=== PATIENT | female | born 1950 | race Caucasian/White ===

== ENCOUNTER 2016-12-11 13:58 | Emergency (ER) | payer MEDICARE, OTHER ==
[2016-12-11] MEDS ORDERED: Sodium Chloride 0.9% 1,000 ML IV ONE (14:16)
[2016-12-11] MEDS ORDERED: Sodium Chloride 0.9% 10 ML Syringe FLUSH PRN (14:16)
--- NOTE | 2016-12-11 14:49 | EDM.PDOC ---
ED HPI GENERAL MEDICAL PROBLEM - General Chief Complaint: Syncope Stated Complaint: DIZZINESS Time Seen by Provider: 12/11/16 14:07 Source of Information: Reports: Patient History Limitations: Reports: No Limitations - History of Present Illness INITIAL COMMENTS - FREE TEXT/NARRATIVE: Patient describes dizziness and near syncope for several weeks. She has been getting treatment from her chiropractic doctor who did finally say that this was not neck related and she should be seen for this. She states over the last 1-2 weeks it has become worse. No actual syncopal episodes, describes it as dizziness. Does have nausea. No vomiting. No other complaints. No history of SD, CVA. History of HTN, Diabetes. Is an occasional smoker. States she can 't smoke at home, so will sometimes when out. Drinks alcohol rarely, no drug use. Onset: Gradual Duration: Getting Worse Location: Reports: Head Worsens with: Reports: Movement Associated Symptoms: Reports: Nausea/Vomiting - Related Data Allergies Allergy/AdvReac Type Severity Reaction Status Date / Time erythromycin base Allergy Respiratory Verified 12/11/16 14:21 Distress Penicillins Allergy Respiratory Verified 12/11/16 14:21 Distress Home Meds: Home Meds Insulin Glarg,Human.Rec.Analog [LantUS] 15 unit SQ BID 06/26/14 [History] metFORMIN [Glucophage] 1,000 mg PO BID 06/26/14 [History] Social & Family History - Tobacco Use Smoking Status *Q: Current Every Day Smoker Years of Tobacco use: 43 ED ROS GENERAL - Review of Systems Review Of Systems: See Below Constitutional: Reports: No Symptoms HEENT: Reports: No Symptoms Respiratory: Reports: No Symptoms Cardiovascular: Reports: No Symptoms Endocrine: Reports: No Symptoms GI/Abdominal: Reports: No Symptoms : Reports: No Symptoms Musculoskeletal: Reports: No Symptoms Skin: Reports: No Symptoms Neurological: Reports: Dizziness Psychiatric: Reports: No Symptoms Hematologic/Lymphatic: Reports: No Symptoms Immunologic: Reports: No Symptoms - Physical Exam Exam: See Below Exam Limited By: No Limitations General Appearance: Alert, WD/WN, Mild Distress Eye Exam: Bilateral Eye: EOMI, PERRL Ears: Normal TMs Throat/Mouth: Normal Inspection, Normal Oropharynx Head Exam: Atraumatic, Normocephalic Neck: Normal Inspection, Supple, Non-Tender, Full Range of Motion Respiratory/Chest: No Respiratory Distress, Lungs Clear, Normal Breath Sounds, No Accessory Muscle Use, Chest Non-Tender Cardiovascular: Normal Peripheral Pulses, Regular Rate, Rhythm, No Edema GI/Abdominal: Normal Bowel Sounds, Soft, Non-Tender, No Organomegaly Neuro Exam (Abbreviated): Alert, Oriented, CN II-XII Intact, Normal Cognition, Normal Gait, Normal Reflexes, No Motor/Sensory Deficits Back Exam: Normal Inspection, Full Range of Motion Extremities: Normal Inspection, Normal Range of Motion, Non-Tender, No Pedal Edema, Normal Capillary Refill Psychiatric: Normal Affect, Normal Mood Skin Exam: Warm, Dry, Intact, Normal Color, No Rash Course - Vital Signs Last Recorded V/S: Last Vital Signs Temp 36.7 C 12/11/16 14:07 Pulse 87 12/11/16 14:07 Resp 16 12/11/16 14:07 BP 164/75 H 12/11/16 14:07 Pulse Ox 95 12/11/16 14:07 - Orders/Labs/Meds Orders: Active Orders 24 hr Category Date Time Status EKG Documentation Completion [RC] ROUTINE Care 12/11/16 14:16 Active Chest 2V [CR] Stat Exams 12/11/16 14:16 Taken Head wo Cont [CT] Stat Exams 12/11/16 14:16 Taken Saline Lock Insert [OM.PC] Routine Oth 12/11/16 14:16 Ordered Labs: Laboratory Tests 12/11/16 12/11/16 12/11/16 Range/Units 14:29 14:29 14:29 WBC 7.4 (4.0-10.0) x10^3/uL RBC 4.50 (4.00-5.50) x10^6/uL Hgb 14.1 (12.0-16.0) g/dL Hct 41.6 (33.0-47.0) % MCV 92.4 (78.0-93.0) fL MCH 31.3 (26.0-32.0) pg MCHC 33.9 (32.0-36.0) g/dL RDW Coeff of [place] 12.9 (10.0-15.0) % Plt Count 222 (130-400) x10^3/uL Neut % (Auto) 58.4 (50.0-80.0) % Lymph % (Auto) 31.9 (25.0-50.0) % [place] % (Auto) 8.2 (2.0-11.0) % Eos % (Auto) 1.5 (0.0-4.0) % Baso % (Auto) 0.0 L (0.2-1.2) % PT 9.8 (9.8-11.8) SEC INR 0.9 L (2.0-3.5) Sodium 142 (136-145) mmol/L Potassium 4.4 (3.5-5.1) mmol/L Chloride 107 (98-107) mmol/L Carbon Dioxide 25 (21-32) mmol/L BUN 15 (7-18) mg/dL Creatinine 1.3 H (0.55-1.02) mg/dL Est Cr Clr Drug Dosing 35.76 mL/min Estimated GFR (MDRD) 41 Glucose 168 H (74-106) mg/dL Lactic Acid (0.4-2.0) mmol/L Calcium 8.5 (8.5-10.1) mg/dL Corrected Calcium 8.98 (8.5-10.1) mg/dL Total Bilirubin 0.4 (0.2-1.0) mg/dL AST 17 (15-37) U/L ALT 27 (14-59) U/L Alkaline Phosphatase 75 (46-116) U/L Creatine Kinase 68 (26-192) U/L Creatine Kinase Index TNP CK-MB (CK-2) TNP Troponin I < 0.017 (<=0.056) ng/mL C-Reactive Protein < 0.2 (<=0.9) mg/dL Total Protein 6.6 (6.4-8.2) g/dL Albumin 3.4 (3.4-5.0) g/dL Globulin 3.2 Albumin/Globulin Ratio 1.06 TSH, Ultra Sensitive 2.619 (0.358-3.74) uIU/mL Urine Color (YELLOW) Urine Appearance (CLEAR) Urine pH (5.0-8.0) Ur Specific [place] Urine Protein (NEGATIVE) mg/dL Urine Glucose (UA) (NEGATIVE) mg/dL Urine Ketones (NEGATIVE) mg/dL Urine Occult Blood (NEGATIVE) Urine Nitrite (NEGATIVE) Urine Bilirubin (NEGATIVE) Urine Urobilinogen (0.2) EU/dL Ur Leukocyte Esterase (NEGATIVE) Urine RBC (NOT SEEN) /HPF Urine WBC (NOT SEEN) /HPF Ur Squamous Epith Cells (NEGATIVE) /HPF Urine Bacteria (NEGATIVE) /HPF Urine Mucus (NEGATIVE) /LPF 12/11/16 12/11/16 Range/Units 14:29 15:46 WBC (4.0-10.0) x10^3/uL RBC (4.00-5.50) x10^6/uL Hgb (12.0-16.0) g/dL Hct (33.0-47.0) % MCV (78.0-93.0) fL MCH (26.0-32.0) pg MCHC (32.0-36.0) g/dL RDW Coeff of Reagan (10.0-15.0) % Plt Count (130-400) x10^3/uL Neut % (Auto) (50.0-80.0) % Lymph % (Auto) (25.0-50.0) % [place] % (Auto) (2.0-11.0) % Eos % (Auto) (0.0-4.0) % Baso % (Auto) (0.2-1.2) % PT (9.8-11.8) SEC INR (2.0-3.5) Sodium (136-145) mmol/L Potassium (3.5-5.1) mmol/L Chloride (98-107) mmol/L Carbon Dioxide (21-32) mmol/L BUN (7-18) mg/dL Creatinine (0.55-1.02) mg/dL Est Cr Clr Drug Dosing mL/min Estimated GFR (MDRD) Glucose (74-106) mg/dL Lactic Acid 2.6 H (0.4-2.0) mmol/L Calcium (8.5-10.1) mg/dL Corrected Calcium (8.5-10.1) mg/dL Total Bilirubin (0.2-1.0) mg/dL AST (15-37) U/L ALT (14-59) U/L Alkaline Phosphatase (46-116) U/L Creatine Kinase (26-192) U/L Creatine Kinase Index CK-MB (CK-2) Troponin I (<=0.056) ng/mL C-Reactive Protein (<=0.9) mg/dL Total Protein (6.4-8.2) g/dL Albumin (3.4-5.0) g/dL Globulin Albumin/Globulin Ratio TSH, Ultra Sensitive (0.358-3.74) uIU/mL Urine Color Yellow (YELLOW) Urine Appearance Slightly cloudy H (CLEAR) Urine pH 6.0 (5.0-8.0) Ur Specific [place] 1.015 Urine Protein Negative (NEGATIVE) mg/dL Urine Glucose (UA) Negative (NEGATIVE) mg/dL Urine Ketones Negative (NEGATIVE) mg/dL Urine Occult Blood Negative (NEGATIVE) Urine Nitrite Negative (NEGATIVE) Urine Bilirubin Negative (NEGATIVE) Urine Urobilinogen 0.2 (0.2) EU/dL Ur Leukocyte Esterase Negative (NEGATIVE) Urine RBC 0-5 (NOT SEEN) /HPF Urine WBC 0-5 (NOT SEEN) /HPF Ur Squamous Epith Cells Moderate H (NEGATIVE) /HPF Urine Bacteria Not seen (NEGATIVE) /HPF Urine Mucus Not seen (NEGATIVE) /LPF Meds: Medications Discontinued Medications Generic Name Dose Route Start Last Admin Trade Name Freq PRN Reason Stop Dose Admin Sodium Chloride 1,000 mls @ 999 mls/hr 12/11/16 14:16 12/11/16 14:55 Normal Saline IV 12/11/16 15:16 999 mls/hr ONETIME ONE Administration Meclizine HCl 25 mg 12/11/16 15:46 12/11/16 15:50 Antivert PO 12/11/16 15:47 25 mg ONETIME ONE Administration Sodium Chloride 10 ml 12/11/16 14:16 Saline Flush FLUSH ASDIRECTED PRN Keep Vein Open - Radiology Interpretation Free Text/Narrative:: Head CT and Chest X-Ray reviewed. No acute process identified. - Re-Assessments/Exams Free Text/Narrative Re-Assessment/Exam: 12/11/16 15:03 Ketan maneuver performed with no signs of worsening or betterment of symptoms Departure - Departure Time of Disposition: 16:20 Disposition: Home, Self-Care 01 Clinical Impression: Dizziness - Discharge Information Instructions: Vertigo, [id number] Referrals: Jerri Tamayo DO [Primary Care Provider] - Forms: ED Department Discharge Additional Instructions: Your testing here today was all normal. Head CT did not show any acute cause for your dizziness, nor did the chest x- ray. Your cardiac labs and EKG were normal as well. I did prescribe Meclizine, also called antivert for your dizziness. This can be taken over the counter at the pharmacy. This may elevate your blood pressure so you should follow up with Dr. Tamayo next week. If this medication does not improve your dizziness, make sure to stop taking it. Stay well hydrated. I would also discuss with her if she thinks you should have a chief compliance officer visit. Please call with any questions or concerns. - My Orders Last 24 Hours: My Active Orders 12/11/16 14:16 EKG Documentation Completion [RC] ROUTINE Chest 2V [CR] Stat Head wo Cont [CT] Stat Saline Lock Insert [OM.PC] Routine - Assessment/Plan Last 24 Hours: My Active Orders 12/11/16 14:16 EKG Documentation Completion [RC] ROUTINE Chest 2V [CR] Stat Head wo Cont [CT] Stat Saline Lock Insert [OM.PC] Routine
[2016-12-11 15:01] VITALS: BP 164/75
[2016-12-11 15:07] LABS: CHLORIDE,CL 107 mmol/L (98-107); SODIUM,NA 142 mmol/L (136-145)
[2016-12-11] MEDS ORDERED: Meclizine 25 MG Tab PO ONE (15:46)
== END 2016-12-11 16:20 | disposition home or self-care (01) ==
LOC: VM.ED 13:58
DX: R42 Dizziness and giddiness (principal); I10 Essential (primary) hypertension; E11.9 Type 2 diabetes mellitus without complications; F17.210 Nicotine dependence, cigarettes, uncomplicated; Z88.0 Allergy status to penicillin; Z88.1 Allergy status to other antibiotic agents; Z79.4 Long term (current) use of insulin; Z79.84 Long term (current) use of oral hypoglycemic drugs
CPT/HCPCS: 70450; 71020; 80053; 81001; 82550; 83605; 84443; 84484; 85025; 85610; 86140; 93005; 96360; 99285; A9270; J7030; 99284-GF

== ENCOUNTER 2018-06-22 10:30 | Emergency (ER) | payer MEDICARE, OTHER ==
[2018-06-22 10:43] VITALS: BP 140/77
[2018-06-22] MEDS: traMADol 50 MG Tab PO ONE (11:00)
[2018-06-22] MEDS: Ondansetron 4 MG Tab.DIS PO ONE (11:00)
--- NOTE | 2018-06-22 12:03 | EDM.PDOC ---
ED HPI GENERAL MEDICAL PROBLEM - General Chief Complaint: Upper Extremity Injury/Pain Stated Complaint: FELL ON ARM Time Seen by Provider: 06/22/18 10:44 Source of Information: Reports: Patient History Limitations: Reports: No Limitations - History of Present Illness INITIAL COMMENTS - FREE TEXT/NARRATIVE: Patient slipped on the ice this morning and states she broke her left arm. She has no other injuries and denies LOC or hitting her head. Denies all other medical complaints at this time. No chest pain, no numbness or tingling to arm or fingers. No nausea or vomiting. Onset: Today, Sudden Duration: Intermittent Location: Reports: Upper Extremity, Left Quality: Reports: Ache Severity: Moderate Left Upper Arm Pain Score (Numeric/FACES): 10 - Related Data Allergies Allergy/AdvReac Type Severity Reaction Status Date / Time erythromycin base Allergy Respiratory Verified 06/22/18 10:45 Distress Penicillins Allergy Respiratory Verified 06/22/18 10:45 Distress Home Meds: Home Meds Insulin Glarg,Human.Rec.Analog [LantUS] 15 unit SQ BID 06/26/14 [History] metFORMIN [Glucophage] 1,000 mg PO BID 06/26/14 [History] Ibuprofen [Advil] 400 mg PO Q6H PRN 04/15/18 [History] Past Medical History Cardiovascular History: Reports: Hypertension Gastrointestinal History: Reports: None Genitourinary History: Reports: None Musculoskeletal History: Reports: Back Pain, Chronic Neurological History: Reports: Neuropathy, Diabetic Psychiatric History: Reports: Depression Endocrine/Metabolic History: Reports: Diabetes, Type II - Past Surgical History Head Surgeries/Procedures: Reports: None Female Surgical History: Reports: Hysterectomy Social & Family History - Family History HEENT: Reports: Cataract Other HEENT Family History: Parents Cardiac: Reports: Heart Failure Other Cardiac Family History: Father Respiratory: Reports: None GI: Reports: Chronic Constipation OBGYN: Reports: None, Other (See Below) Other OBGYN Family History: Unknown Musculoskeletal: Reports: Back pain, Chronic Neurological: Reports: Neuropathy, Peripheral Psychiatric: Reports: Anxiety, Depression Endocrine/Metabolic: Reports: Diabetes, Type I, Diabetes, type II Hematologic: Reports: None Oncologic: Reports: Breast Other Oncologic Family History: Sister - Tobacco Use Smoking Status *Q: Unknown Ever Smoked - Living Situation & Occupation Living situation: Reports: , Alone Occupation: Retired (teacher. Good social network.) Review of Systems - Review of Systems Review Of Systems: See Below Constitutional: Reports: No Symptoms Eyes: Reports: No Symptoms Ears: Reports: No Symptoms Nose: Reports: No Symptoms Mouth/Throat: Reports: No Symptoms Respiratory: Reports: No Symptoms Cardiovascular: Reports: No Symptoms GI/Abdominal: Reports: No Symptoms Genitourinary: Reports: No Symptoms Musculoskeletal: Reports: Shoulder Pain (left), Arm Pain Skin: Reports: Bruising Neurological: Reports: No Symptoms Psychiatric: Reports: No Symptoms ED EXAM, GENERAL - Physical Exam Exam: See Below Exam Limited By: No Limitations General Appearance: Alert, WD/WN, Mild Distress Eye Exam: Bilateral Eye: EOMI, Normal Inspection Nose: Normal Inspection, Normal Mucosa, No Blood Throat/Mouth: Normal Inspection, Normal Lips, Normal Teeth, Normal Gums, Normal Oropharynx, Normal Voice, No Airway Compromise Head: Atraumatic, Normocephalic Neck: Normal Inspection, Supple, Non-Tender, Full Range of Motion Respiratory/Chest: No Respiratory Distress, Lungs Clear, Normal Breath Sounds, No Accessory Muscle Use, Chest Non-Tender Cardiovascular: Normal Peripheral Pulses, Regular Rate, Rhythm, No Edema, No Gallop, No JVD, No Murmur, No Rub Peripheral Pulses: 2+: Brachial (L), Radial (L) Extremities: Normal Capillary Refill, Joint Swelling, Limited Range of Motion, Other (left proximal arm has significant edema with ecchymosis) Neurological: Alert, Oriented, CN II-XII Intact, Normal Cognition, Normal Gait, Normal Reflexes, No Motor/Sensory Deficits Psychiatric: Normal Affect, Anxious Skin Exam: Ecchymosis Lymphatic: No Adenopathy ED TRAUMA EXTREMITY PROCEDURES - Splinting Left Upper Extremity Splint Site: left arm Pre-Procedure NV Status: Normal Post-Procedure NV Status: Normal Splint Material: Fiberglass Splint Design: Sling & Swathe Applied & Form Fitted By: Provider, Nurse Provider Post-Splint Application NV Check: NV Status Normal, Good Position Complications: No Progress/Comments: coaptation sling applied from axilla, down and around the elbow up to the base of the neck. Padding applied before fiberglass splint, remi wrapped after splint was formed, sling made from tube gauze around wrist and neck. No pressure applied to elbow. Tolerated without difficulty. No plaster used due to extreme swelling to area and potential for more. Course - Vital Signs Last Recorded V/S: Last Vital Signs Temp 35.8 C 06/22/18 10:35 Pulse 95 06/22/18 10:35 Resp 18 06/22/18 10:35 BP 140/77 06/22/18 10:35 Pulse Ox 96 06/22/18 10:35 - Orders/Labs/Meds Meds: Medications Discontinued Medications Generic Name Dose Route Start Last Admin Trade Name Khoi PRN Reason Stop Dose Admin Ondansetron HCl 4 mg 06/22/18 10:52 06/22/18 11:00 Zofran Odt PO 06/22/18 10:53 4 mg ONETIME ONE Administration Tramadol HCl 50 mg 06/22/18 10:52 06/22/18 11:00 Ultram PO 06/22/18 10:53 50 mg ONETIME ONE Administration Departure - Departure Time of Disposition: 13:58 Disposition: Home, Self-Care 01 Condition: Fair Clinical Impression: Fracture of humerus, left, closed - Discharge Information *PRESCRIPTION DRUG MONITORING PROGRAM REVIEWED*: Not Applicable *COPY OF PRESCRIPTION DRUG MONITORING REPORT IN PATIENT MADHU: Not Applicable Instructions: Cast or Splint Care, Adult, [id number], Humerus Fracture Treated With Immobilization, [id number] Referrals: Alisia Minor COSMETIC SALES ASSISTANT [Primary Care Provider] - Forms: ED Department Discharge Additional Instructions: Plan 1. Follow up with [facility] sometime next week. Call the main number and ask to make an appointment with orthopedic clinic. Address is [address] [place] [address] 2. Images have been sent to [facility] imaging so they do have them to look at. 3. Rest your arm as much as you can. You should also apply ice to reduce swelling. 4. If you develop sudden uncontrolled pain, severe numbness, tingling, or swelling to your hand or fingertips, call or come back immediately. 5. Take you Tramadol every 6 hours as needed for pain. 6. Leave your arm bent at 90 degrees and keep it in the tie to support your arm. 7. Call if you have any questions or concerns. ED Communication - ED Communication Date/Time Date: 06/22/18 Time Called: 12:00 - Discussed Case With (1) Discussed Case With (1): Other (Dr. Phillips with [facility] orthopedics was consulted and orders to wrap in a coaptation splint and to take additional x- ray images received and performed.) - Problem List & Annotations (1) Fracture of humerus, left, closed SNOMED Code(s): 80075947 Code(s): S42.302A - UNSP FRACTURE OF SHAFT OF HUMERUS, LEFT ARM, INIT Status: Acute Priority: Medium Current Visit: No Qualifiers: Encounter type: initial encounter Humerus Location: proximal Fracture alignment: displaced - Problem List Review Problem List Initiated/Reviewed/Updated: Yes - Assessment/Plan Assessment:: left displaced proximal humerus Plan: Plan 1. Follow up with [facility] sometime next week. Call the main number [phone] and ask to make an appointment with orthopedic clinic. Address is [address] [place] [address] 2. Images have been sent to [facility] imaging so they do have them to look at. 3. Rest your arm as much as you can. You should also apply ice to reduce swelling. 4. If you develop sudden uncontrolled pain, severe numbness, tingling, or swelling to your hand or fingertips, call or come back immediately. 5. Take you Tramadol every 6 hours as needed for pain. 6. Leave your arm bent at 90 degrees and keep it in the tie to support your arm. 7. Call if you have any questions or concerns.
--- NOTE | 2018-06-22 12:26 | CT ---
[id number] CT/CT Shoulder Left WO IV Exam: CT Shoulder Left WO IV Clinical Data: TRAUMA COMPARISON: NO PREVIOUS SIMILAR EXAM IS AVAILABLE FINDINGS: A comminuted diastatic angulated proximal left humeral diaphyseal fracture is seen. There is no scapular fracture. Reformatted images suggest fractures of the scapula and sternum, thought to be related to reformation artifact.. IMPRESSION: DIASTATIC ANGULATED PROXIMAL LEFT HUMERAL DIAPHYSEAL FRACTURE. Mohit Lovett MD 06/22/18 2912 Thank you for allowing us to participate in the care of your patient.
--- NOTE | 2018-06-22 12:46 | CR ---
[id number] RAD/RAD Humerus Left 2V EXAM: 3 VIEWS LEFT HUMERUS. INDICATION: FALL. COMPARISON: None. DISCUSSION: There is a multi fragmentary displaced fracture involving the proximal to mid left humerus. This is better described on recent CT. IMPRESSION: 1. Multi fragmentary displaced fracture involving the proximal left humerus. Mathew Chao DO 06/22/18 1245 Thank you for allowing us to participate in the care of your patient.
== END 2018-06-22 14:03 | disposition home or self-care (01) ==
LOC: VM.ED 10:30
DX: S42.202A Unspecified fracture of upper end of left humerus, initial encounter for closed fracture (principal); E11.40 Type 2 diabetes mellitus with diabetic neuropathy, unspecified; I10 Essential (primary) hypertension; Z88.1 Allergy status to other antibiotic agents; Z88.0 Allergy status to penicillin; Z79.4 Long term (current) use of insulin; Z79.84 Long term (current) use of oral hypoglycemic drugs; W00.0XXA Fall on same level due to ice and snow, initial encounter
CPT/HCPCS: 29105; 73060; 73200; 99283; 99284; A9270

== ENCOUNTER 2018-06-24 10:13 | Emergency (ER) | payer MEDICARE, OTHER ==
[2018-06-24] MEDS ORDERED: Ondansetron 4 MG Tab.DIS PO ONE (10:54)
--- NOTE | 2018-06-24 12:43 | EDM.PDOC ---
ED HPI GENERAL MEDICAL PROBLEM - General Chief Complaint: Upper Extremity Injury/Pain Time Seen by Provider: 06/24/18 10:20 Source of Information: Reports: Patient, Old Records History Limitations: Reports: No Limitations - History of Present Illness INITIAL COMMENTS - FREE TEXT/NARRATIVE: Pt. fell as fractured her L humerus on 06/22/18. A sugar tongs splint and sling was placed around neck using tube gauze. Pt. complains of continued discomfort in L upper arm. She states that the splint does not fit anymore because the swelling has decreased. She states that the tramadol is making her nauseated. No numbness/tingling in the distal portion of the extremity. She states that she can't make it in to the ortho clinic until her appointment next Wednesday. Onset: Today Onset Date: 06/24/18 Location: Reports: Upper Extremity, Left Quality: Reports: Throbbing Severity: Severe - Related Data Allergies Allergy/AdvReac Type Severity Reaction Status Date / Time erythromycin base Allergy Respiratory Verified 06/24/18 11:03 Distress Penicillins Allergy Respiratory Verified 06/24/18 11:03 Distress Home Meds: Home Meds Insulin Glarg,Human.Rec.Analog [LantUS] 15 unit SQ BID 06/26/14 [History] metFORMIN [Glucophage] 1,000 mg PO BID 06/26/14 [History] Ibuprofen [Advil] 400 mg PO Q6H PRN 04/15/18 [History] Past Medical History Cardiovascular History: Reports: Hypertension Gastrointestinal History: Reports: None Genitourinary History: Reports: None Musculoskeletal History: Reports: Back Pain, Chronic Neurological History: Reports: Neuropathy, Diabetic Psychiatric History: Reports: Depression Endocrine/Metabolic History: Reports: Diabetes, Type II - Past Surgical History Head Surgeries/Procedures: Reports: None Female Surgical History: Reports: Hysterectomy Social & Family History - Family History HEENT: Reports: Cataract Other HEENT Family History: Parents Cardiac: Reports: Heart Failure Other Cardiac Family History: Father Respiratory: Reports: None GI: Reports: Chronic Constipation OBGYN: Reports: None, Other (See Below) Other OBGYN Family History: Unknown Musculoskeletal: Reports: Back pain, Chronic Neurological: Reports: Neuropathy, Peripheral Psychiatric: Reports: Anxiety, Depression Endocrine/Metabolic: Reports: Diabetes, Type I, Diabetes, type II Hematologic: Reports: None Oncologic: Reports: Breast Other Oncologic Family History: Sister - Living Situation & Occupation Living situation: Reports: , Alone Occupation: Retired (teacher. Good social network.) Review of Systems - Review of Systems Review Of Systems: See Below Musculoskeletal: Reports: Arm Pain ED EXAM, GENERAL - Physical Exam Exam: See Below General Appearance: Alert, WD/WN, No Apparent Distress Extremities: Other (ecchymosis and edema noted to L upper arm. CMS intact. No deformity or crepitus noted.) Course - Orders/Labs/Meds Meds: Medications Discontinued Medications Generic Name Dose Route Start Last Admin Trade Name Freq PRN Reason Stop Dose Admin Ondansetron HCl 4 mg 06/24/18 10:54 06/24/18 10:58 Zofran Odt PO 06/24/18 10:55 4 mg ONETIME ONE Administration - Re-Assessments/Exams Free Text/Narrative Re-Assessment/Exam: fiberglas sugar tongs splint placed on L upper arm. The arm was placed on a shoulder immobilizer. Pt. reported that it was much more comfortable and was tolerating it well. Departure - Departure Time of Disposition: 12:45 Disposition: Home, Self-Care 01 Condition: Good Clinical Impression: Fracture of humerus - Discharge Information Instructions: Cast or Splint Care, Adult, [id number] Referrals: Alisia Minor PROVISIONING SPECIALIST [Primary Care Provider] - Forms: ED Department Discharge Additional Instructions: I am prescribing you some [place]. Sometimes people tolerate this better than tramadol. If you choose to take it, take one tab every 4-6 hours as needed for pain. Zofran 4mg ODT 1 every 8 hours for nausea. They are unable to get you a sooner appointment, but they have an ortho walk in clinic open at [facility] on [address] if you choose to go there. The walk-in clinic is open from 1:30-4PM. - Assessment/Plan Plan: I am prescribing you some [place]. Sometimes people tolerate this better than tramadol. If you choose to take it, take one tab every 4-6 hours as needed for pain. Zofran 4mg ODT 1 every 8 hours for nausea. They are unable to get you a sooner appointment, but they have an ortho walk in clinic open at [facility] on [address] if you choose to go there. The walk-in clinic is open from 1:30-4PM.
[2018-06-24 12:54] VITALS: BP 126/57
== END 2018-06-24 11:15 | disposition home or self-care (01) ==
LOC: VM.ED 10:13
DX: S42.302A Unspecified fracture of shaft of humerus, left arm, initial encounter for closed fracture (principal); I10 Essential (primary) hypertension; E11.40 Type 2 diabetes mellitus with diabetic neuropathy, unspecified; Z88.1 Allergy status to other antibiotic agents; Z88.0 Allergy status to penicillin; Z79.4 Long term (current) use of insulin; W18.30XA Fall on same level, unspecified, initial encounter
CPT/HCPCS: 29105; 99283; A9270

== ENCOUNTER 2022-03-07 09:20 | Emergency (ER) | payer MEDICARE, OTHER ==
[2022-03-07 10:01] LABS: STREP A BY PCR NOT DETECTED (NOT DETECT)
[2022-03-07 10:15] LABS: CORONAVIRUS COVID-19 NAA NEGATIVE (NEGATIVE)
[2022-03-07 10:39] VITALS: BP 142/74; PULSE 95
== END 2022-03-07 10:24 | disposition home or self-care (01) ==
LOC: VM.ED 09:20
DX: J20.9 Acute bronchitis, unspecified (principal); I10 Essential (primary) hypertension; E11.9 Type 2 diabetes mellitus without complications; Z88.0 Allergy status to penicillin; Z88.1 Allergy status to other antibiotic agents; Z79.4 Long term (current) use of insulin; Z79.82 Long term (current) use of aspirin; Z87.891 Personal history of nicotine dependence; Z20.822 Contact with and (suspected) exposure to COVID-19
CPT/HCPCS: 0240U; 87651; 99283

== ENCOUNTER 2024-12-25 09:00 | Day surgery (SDC) | payer MEDICARE, OTHER ==
[2024-12-25] MEDS: Lactated Ringers 1,000 ML IV SCH (09:23)
[2024-12-25] MEDS ORDERED: fentaNYL 100 MCG/2 ML SDV ONE (09:26)
[2024-12-25] MEDS ORDERED: Propofol 200 MG/20 ML SDV ONE (09:26)
[2024-12-25 11:58] VITALS: BP 155/70; PULSE 79
== END 2024-12-25 12:01 | disposition home or self-care (01) ==
LOC: VM.SDS 09:00
PROVIDERS: ATTEND Surgery
DX: Z12.11 Encounter for screening for malignant neoplasm of colon (principal); D12.6 Benign neoplasm of colon, unspecified; I10 Essential (primary) hypertension; I12.9 Hypertensive chronic kidney disease with stage 1 through stage 4 chronic kidney disease, or unspecified chronic kidney disease; E11.22 Type 2 diabetes mellitus with diabetic chronic kidney disease; N18.30 Chronic kidney disease, stage 3 unspecified; E66.01 Morbid (severe) obesity due to excess calories; E11.42 Type 2 diabetes mellitus with diabetic polyneuropathy; Z88.1 Allergy status to other antibiotic agents; Z88.0 Allergy status to penicillin; Z88.8 Allergy status to other drugs, medicaments and biological substances; Z79.4 Long term (current) use of insulin; Z79.899 Other long term (current) drug therapy
CPT/HCPCS: 00811; 82947; 88305; 99100; J2704; J3010; J7120